=== PATIENT | male | born 1960 | race Caucasian/White ===

== ENCOUNTER → 2018-03-07 | Outpatient (CLI) | payer OTHER ==
--- NOTE | 2018-03-07 22:14 | MR ---
EXAMINATION TYPE: MR brain wo/w con DATE OF EXAM: 03/07/2018 COMPARISON: NONE HISTORY: Conversion disorder with seizures CONTRAST: Performed utilizing 7.5 mL intravenous Gadavist gadolinium contrast. TECHNIQUE: Multiplanar, multiecho imaging on a 3.0 Ivis magnet is performed through the brain. Stud y is performed within 24 hours of arrival to the hospital. The craniovertebral junction is normal. The pituitary is normal. Diffusion-weighted imaging is performed. No abnormal hyperintensity is present to suggest an acute i ntracranial infarct or acute ischemic change. Some mild periventricular white matter hyperintensity is present which is nonspecific previous could be related to microvascular ischemic change. Right lateral ventricle has some fullness in his posterior body. Underlying mass is not clearly ident ified. Signal adjacent appears normal. No temporal horn dilatation is evident. This could be related to some congenital asymmetry. Small subarachnoid intraventricular cyst would be an unusual etiology. No suspicious enhancement is evident. IMPRESSIONS: 1. No discrete mass identified. There is some subtle asymmetry with fullness of the superior posterio r right lateral ventricle. Hydrocephalus is not present.
== END | disposition home or self-care (01) ==
LOC: RADMRIMAIN 15:33
PROVIDERS: ATTEND Family Medicine
DX: R90.89 Other abnormal findings on diagnostic imaging of central nervous system (principal); F44.5 Conversion disorder with seizures or convulsions; R20.0 Anesthesia of skin
CPT/HCPCS: 70553; A9581

== ENCOUNTER 2020-10-02 08:37 | Day surgery (SDC) | payer OTHER ==
[2020-09-30 13:47] VITALS: BMI 27.2
[~2020-10-02 08:37] MED LIST: LACTATED RINGERS 1,000 ML IV SCH; LIDOCAINE 1% (10MG/ML) FOR IV START INTRADERMA PRN
[2020-10-02 09:04] VITALS: RESP 16; TEMP 97.8
[2020-10-02] MEDS ORDERED: PROPOFOL 10 MG/ML 20 ML VIAL IV ONE (10:04)
--- NOTE | 2020-10-02 10:09 | P.GSHP ---
History of Present Illness H&P Date: 10/02/20 Chief Complaint: GERD This 60-year-old male referred from Dr. gayr. Patient points of GERD. Presents today for EGD. Past Medical History Past Medical History: Hypertension, Osteoarthritis (OA), Prostate Disorder, Seizure Disorder Additional Past Medical History / Comment(s): LAST SEIZURE -1994 HIATAL HERNIA History of Any Multi-Drug Resistant Organisms: None Reported Past Surgical History: Hernia Repair Additional Past Surgical History / Comment(s): COLONOSCOPY, LEFT INGUINAL HERNIA, Past Anesthesia/Blood Transfusion Reactions: No Reported Reaction Smoking Status: Current every day smoker - Past Family History Mother Family Medical History: Cancer Father Family Medical History: Cancer Brother(s) Family Medical History: Cancer Medications and Allergies Home Medications Medication Instructions Recorded Confirmed Type Dutasteride [Avodart] 0.5 mg PO DAILY 07/29/15 10/02/20 History carBAMazepine [TEGretol XR] 400 mg PO DAILY 07/29/15 10/02/20 History Cholecalciferol [Vitamin D3 (25 50 mcg PO DAILY 09/30/20 10/02/20 History Mcg = 1000 Iu)] Omeprazole [PriLOSEC] 40 mg PO DAILY 09/30/20 10/02/20 History amLODIPine [Norvasc] 5 mg PO DAILY 09/30/20 10/02/20 History Allergies Allergy/AdvReac Type Severity Reaction Status Date / Time No Known Allergies Allergy Verified 09/30/20 13:21 Surgical - Exam Vital Signs Temp Pulse Resp BP Pulse Ox 97.8 F 86 16 182/109 93 L 10/02/20 08:58 10/02/20 08:58 10/02/20 08:58 10/02/20 08:58 10/02/20 08:58 - General well developed, well nourished, no distress - Eyes PERRL - ENT normal pinna - Neck no masses - Respiratory normal expansion - Cardiovascular Rhythm: regular - Abdomen Abdomen: soft, non tender Assessment and Plan Assessment: GERD. We'll perform EGD.
--- NOTE | 2020-10-02 10:17 | P.OP ---
Date of Procedure: 10/02/20 Preoperative Diagnosis: GERD Postoperative Diagnosis: Duodenitis Antral gastritis Small sliding hiatal hernia Mild esophagitis Procedure(s) Performed: EGD Anesthesia: MAC Surgeon: John Acosta Pathology: other (Duodenum, antrum esophagus) Condition: stable Disposition: PACU Description of Procedure: Patient's placed on the endoscopy table in the lateral position. He received IV sedation. The gastroscope placed oropharynx passed in the esophagus into the stomach. Scope was then placed through the pylorus. The first and second portion of the duodenum appeared inflamed. A biopsies performed. Scope was then brought back the antrum and this was mildly inflamed. A biopsies performed. The scope was unretroflexed and remainder stomach appeared normal. The patient had a small sliding hiatal hernia. The GE junction was at 40 cm. The distal esophagus appeared mildly inflamed. A biopsies performed. The proximal esophagus appeared normal. Scope was withdrawn for patient.
[2020-10-02 10:30] VITALS: BP 125/75; PULSE 80
== END 2020-10-02 10:55 ==
LOC: ORWHC2ENDO 08:37
PROVIDERS: ATTEND Surgery
DX: K29.80 Duodenitis without bleeding (principal); K29.50 Unspecified chronic gastritis without bleeding; K21.00 Gastro-esophageal reflux disease with esophagitis, without bleeding; K44.9 Diaphragmatic hernia without obstruction or gangrene; I10 Essential (primary) hypertension; F17.200 Nicotine dependence, unspecified, uncomplicated; M19.90 Unspecified osteoarthritis, unspecified site; N42.9 Disorder of prostate, unspecified; G40.909 Epilepsy, unspecified, not intractable, without status epilepticus; Z98.890 Other specified postprocedural states; Z80.9 Family history of malignant neoplasm, unspecified; F32.9 Major depressive disorder, single episode, unspecified; Z79.899 Other long term (current) drug therapy
CPT/HCPCS: 88305; 43239; J2704

== ENCOUNTER → 2023-12-23 | Outpatient (CLI) | payer OTHER ==
--- NOTE | 2023-12-23 10:16 | CTL ---
EXAMINATION TYPE: CT Low Dose Lung DATE OF EXAM ORDERED: 12/23/2023 COMPARISON: None HISTORY: . Low Dose CT Lung Screening CT DLP: 115.[address] CTDI: 3 mGy IV CONTRAST USED: None. SCREENING VISIT: First visit TECHNIQUE: Low dose computed tomography scan was performed through the chest at 1 millimeter thick se ctions and reconstructed images in the coronal plane at [address] DIAGNOSTIC QUALITY: Satisfactory FINDINGS: LUNG NODULES: Not presentLeft lung: no nodules identified.Right lung: no nodules identified. LUNGS: COPD: Severity: Mild Fibrosis: Severity:None Lymph nodes: None Other findings: None RIGHT PLEURAL SPACE: Effusion: None Calcification: None Thickening: None Pneumothorax: None LEFT PLEURAL SPACE: Effusion: None Calcification: None Thickening: None Pneumothorax: None HEART: Heart Size: Mildly enlarged Coronary calcification: Mild Pericardial effusion: None OTHER FINDINGS: Upper abdomen: No significant abnormality Bony thorax: Degenerative changes Supraclavicular region: No significant abnormalityOther: No significant abnormalityI IMPRESSION: No nodularity seen greater than [address] CHEST RECOMMENDATION: Follow-up screening in one year CT LUNG RAD: LUNG RAD CATEGORY 1 negative
== END | disposition home or self-care (01) ==
LOC: RADCTMAIN 07:21
PROVIDERS: ATTEND Family Medicine
DX: Z12.2 Encounter for screening for malignant neoplasm of respiratory organs (principal); F17.210 Nicotine dependence, cigarettes, uncomplicated
CPT/HCPCS: 71271

== ENCOUNTER 2024-10-04 07:16 | Day surgery (SDC) | payer MEDICARE, OTHER ==
[2024-10-02 13:28] VITALS: BMI 26.2
[2024-10-04] MEDS ORDERED: LIDOCAINE 1% (10MG/ML) FOR IV START INTRADERMA PRN (07:19)
[2024-10-04 07:37] VITALS: TEMP 97.8
[2024-10-04] MEDS: IV FLUID CONTINUATION 1,000 ML IV ONE (07:40)
[2024-10-04] MEDS: LACTATED RINGERS 1,000 ML IV SCH (07:46)
[2024-10-04] MEDS ORDERED: PROPOFOL 10 MG/ML 20 ML VIAL IV ONE (08:08)
--- NOTE | 2024-10-04 08:11 | P.GSHP ---
History of Present Illness H&P Date: 10/04/24 Chief Complaint: Screening colonoscopy This is a 64-year-old male presents today for screening colonoscopy. Patient denies any significant GI complaints. Past Medical History Past Medical History: GERD/Reflux, Hypertension, Osteoarthritis (OA), Prostate Disorder, Seizure Disorder Additional Past Medical History / Comment(s): LAST SEIZURE -1994 HIATAL HERNIA History of Any Multi-Drug Resistant Organisms: None Reported Past Surgical History: Hernia Repair Additional Past Surgical History / Comment(s): COLONOSCOPY, polyps, LEFT IN GUINAL HERNIA, Past Anesthesia/Blood Transfusion Reactions: No Reported Reaction Additional Past Anesthesia/Blood Transfusion Reaction / Comment(s): no blood transfusion Smoking Status: Current every day smoker - Past Family History Mother Family Medical History: Cancer Additional Family Medical History / Comment(s): breast Father Family Medical History: Cancer Additional Family Medical History / Comment(s): lung Brother(s) Family Medical History: Cancer Additional Family Medical History / Comment(s): colon Medications and Allergies Home Medications Medication Instructions Recorded Confirmed Type carBAMazepine [TEGretol XR] 400 mg PO DAILY 07/29/15 10/04/24 History Cholecalciferol [Vitamin D3 (25 1,000 mcg PO DAILY 09/30/20 10/04/24 History Mcg = 1000 Iu)] Omeprazole [PriLOSEC] 40 mg PO DAILY PRN 09/30/20 10/04/24 History amLODIPine [Norvasc] 5 mg PO DAILY 09/30/20 10/04/24 History Losartan [Cozaar] 100 mg PO DAILY 10/02/24 10/04/24 History tadalafiL 10 mg PO DAILY PRN 10/04/24 10/04/24 History Allergies Allergy/AdvReac Type Severity Reaction Status Date / Time No Known Allergies Allergy Verified 10/04/24 07:40 Surgical - Exam Vital Signs Temp Pulse Resp BP Pulse Ox 97.8 F 93 16 162/82 96 10/04/24 07:36 10/04/24 07:36 10/04/24 07:36 10/04/24 07:36 10/04/24 07:36 - General well developed, well nourished, no distress - Eyes PERRL - ENT normal pinna - Neck no masses - Respiratory normal expansion - Cardiovascular Rhythm: regular - Abdomen Abdomen: soft, non tender Assessment and Plan Assessment: Will perform screening colonoscopy.
--- NOTE | 2024-10-04 08:34 | P.OP ---
Date of Procedure: 10/04/24 Preoperative Diagnosis: Screening colonoscopy Postoperative Diagnosis: Multiple colon polyps Diverticulosis Procedure(s) Performed: Colonoscopy` Anesthesia: MAC Surgeon: John Acosta Pathology: other (Multiple colon polyps) Condition: stable Disposition: PACU Description of Procedure: The patient is placed on the endoscopy table in the lateral position. He received IV sedation. Digital rectal exam was performed. This revealed no abnormalities. The flexible colonoscope was then placed patient anus and passed throughout the entire colon. The ileocecal valve was visualized. The cecum there is a small sessile polyp. Removed with a cold forcep. Scope brought back in the right colon near the hepatic flexure there was another large polyp. This removed with snare. Scope was back in the transverse colon and descending colon there was evidence of diverticulosis. In the rectum there were several large polyps removed with a snare. There is no other sessile polyp removed with cold forcep. Scope was withdrawn from patient. Due to the multiple polyps recommend the patient have a repeat colonoscopy within 1 year.
[2024-10-04 08:51] VITALS: RESP 16
[2024-10-04 09:00] VITALS: BP 130/83; PULSE 74
== END 2024-10-04 09:12 | disposition home or self-care (01) ==
LOC: ORWHC2ENDO 07:16
PROVIDERS: ATTEND Surgery
DX: Z12.11 Encounter for screening for malignant neoplasm of colon (principal); D12.0 Benign neoplasm of cecum; D12.3 Benign neoplasm of transverse colon; K62.1 Rectal polyp; K57.30 Diverticulosis of large intestine without perforation or abscess without bleeding; I10 Essential (primary) hypertension; G40.909 Epilepsy, unspecified, not intractable, without status epilepticus; K21.9 Gastro-esophageal reflux disease without esophagitis; M19.90 Unspecified osteoarthritis, unspecified site; F17.210 Nicotine dependence, cigarettes, uncomplicated; Z79.899 Other long term (current) drug therapy
CPT/HCPCS: 88305; 45380; 45385; J2704